=== PATIENT | female | born 1980 | race Caucasian/White ===

== ENCOUNTER 2019-04-02 05:30 | Inpatient (IN) | payer MEDICAID ==
[2019-04-02] VITALS (8 sets, daily range): BP systolic 100–117; BP diastolic 50–70; PULSE 91–98; RESP 18–20; Ht 146.1 cm; Wt 71.8 kg
[~2019-04-02] VITALS: Ht 146.1 cm; Wt 71.8 kg
[2019-04-02] MEDS ORDERED: PREN-19 PO (06:03)
[2019-04-02] MEDS ORDERED: FERR134T PO (06:03)
[2019-04-02] MEDS ORDERED: LACTATED RINGER'S 1,000 ML IV SCH (06:26)
[2019-04-02] MEDS ORDERED: MISOPROSTOL 200 MCG TAB PR PRN ×2 (06:30→12:30)
[2019-04-02] MEDS ORDERED: CEFAZOLIN 2 GM/50 ML (PMX) 50 ML IVPB SCH (06:30)
[2019-04-02] MEDS ORDERED: OXYTOCIN 30 UNITS/LR 500 ML IV SCH ×2 (06:30→12:22)
[2019-04-02] MEDS ORDERED: METHYLERGONOVINE 0.2 MG INJ IM PRN ×2 (06:30→12:30)
[2019-04-02] MEDS ORDERED: CARBOPROST 250 MCG INJ IM PRN ×2 (06:30→12:30)
[2019-04-02] MEDS ORDERED: OXYTOCIN 30 UNITS/LR 500 ML IV PRN ×2 (06:30→12:30)
[2019-04-02] MEDS ORDERED: BETAMET NA PHOS/AC(6 MG/ML) 5ML INJ INJ ONE (07:30)
--- NOTE | 2019-04-02 07:33 | TRIAGE ---
OB Triage Datetime Report Generated by CPN: 04/02/2019 07:33 Datetime: 04/02/2019 07:15 Time of Arrival: 04/02/2019 07:15 EGA: 34.5 Arrived By: Wheelchair Arrived From: Home Chief Complaint: w/ hx c/s x1 c/o ucs and gush fluid at 0400 Movement: Present Contractions: Regular Time Contractions Began: 04/02/2019 03:00 Contractions: q5 Rupture of Membranes: Ruptured Vaginal Bleeding: None Vaginal Discharge: Denies Recent Sexual Intercouse: Denies Abdominal Trauma: Not Applicable Patient Complaints: Contractions Time Provider Notified: 04/02/2019 06:45 Provider Notified: reiche Initial Plan: EFM,SVE Datetime: 04/02/2019 06:22 Labor Evaluation Frequency: 3-6 Monitor Mode: External Duration (sec)2399: 60-120 Quality: Moderate Pattern: Normal: <= 5 Contractions in 10 Minutes Resting Tone Rice: Relaxed Heart Rate FHR Baseline Rate: 140 Monitor Mode: External US FHR Baseline Changes: No Baseline Change Variability: Moderate 6-25 bpm Accelerations: 15X15 Decelerations: None Category: Category I Pain Assessment Pain Scale: 7 Pain Presence: Intermittent Pain Type: Contraction Pain Location: Abdomen Pain Relief Measures: Pain Medication Given Vaginal Exam Dilatation (cms): 1.0 Effacement (%): 60 Station: -2 Exam By: E Juan Pablo Membrane Status: Ruptured Membranes Rupture Method: Spontaneous Amniotic Fluid Color: Clear Amniotic Fluid Amount: Moderate Amniotic Fluid Odor: Normal Vaginal Bleeding: Scant Pool: Positive Nitrazine: Positive Cervix, Consistency: Soft Cervix, Position: Posterior Presentation 'A': Cephalic Datetime: 04/02/2019 05:55 Stage of : OB Triage Maternal Assessment Level of Consciousness: Keenly Alert, Responsive Headache: Denies Blurred Vision: No Nausea/Vomiting: Denies RUQ Epigastric Pain: Denies Facial Edema: None Monitor Mode: External Pattern: Normal: <= 5 Contractions in 10 Minutes Resting Tone Rice: Relaxed Heart Rate FHR Baseline Rate: 135 Monitor Mode: External US Pain Assessment Pain Scale: 6 Pain Presence: Intermittent Pain Type: Contraction Pain Location: Abdomen
[2019-04-02] MEDS ORDERED: BETAMET NA PHOS/AC(6 MG/ML) 2 ML INJ SYG IM SCH (08:00)
[2019-04-02] MEDS ORDERED: METOCLOPRAMIDE 10 MG INJ ONE (08:31)
[2019-04-02] MEDS ORDERED: FAMOTIDINE 20 MG INJ ONE (08:31)
[2019-04-02] MEDS ORDERED: CITRIC ACID/NA CITRATE 30 ML CUP ONE (08:31)
--- NOTE | 2019-04-02 08:41 | PREAC ---
Date/Time of Note Date/Time of Note DATE: 04/02/19 TIME: 08:40 Anesthesia Eval and Record Evaluation Time Pre-Procedure Interview DATE: 04/02/19 TIME: 08:40 Age 38 Sex female NPO: 8 hrs Preoperative diagnosis intrauterine Planned procedure repeat c section Past Medical History Past Medical History: Includes : : (2), Para: (1) Surgery & Anesthesia Issues No known issue Meds Anticoagulation: No Beta Catalina within 24 hr: No Reason Beta Catalina not given: Pt. not on B-Catalina Reported Medications Vit #76/Iron,Carb/FA (Prenatabs Rx Tablet) 1 Each Tablet, 1 EACH PO DAILY, TAB 04/02/19 Ferrous Sulfate (Iron) 134 Mg Tablet, 134 MG PO DAILY, TAB 04/02/19 Current Medications Lactated Ringer's 1,000 ml @ 125 mls/hr Q8H IV Last administered on 04/02/19at 08:12; Admin Dose 125 MLS/HR; Start 04/02/19 at 06:26 Cefazolin Sodium/ Dextrose 50 ml @ 100 mls/hr ONCE IVPB ; Start 04/02/19 at 06:30 Oxytocin/Lactated Ringer's 500 ml @ 125 mls/hr POST IV ; Start 04/02/19 at 06:30 Oxytocin/Lactated Ringer's 500 ml @ 0 mls/hr ONCE PRN IV .VAGINAL BLEEDING; Start 04/02/19 at 06:30 Methylergonovine Maleate (Methergine) 0.2 mg ONCE PRN IM .VAGINAL BLEEDING; Start 04/02/19 at 06:30 Carboprost Tromethamine (Hemabate) 250 mcg ONCE PRN IM .VAGINAL BLEEDING; Start 04/02/19 at 06:30 Misoprostol (Cytotec) 1,000 mcg ONCE PRN MS .VAGINAL BLEEDING; Start 04/02/19 at 06:30 Betamethasone Acet/Betameth SodPhos (Celestone Soluspan) 12 mg ONCE ONCE IM Last administered on 04/02/19at 08:08; Admin Dose 12 MG; Start 04/02/19 at 09:00; Stop 04/02/19 at 09:01 Citric Acid/ Sodium Citrate (Bicitra) 30 ml ONCE ONCE PO Last administered on 04/02/19at 08:36; Admin Dose 30 ML; Start 04/02/19 at 09:00; Stop 04/02/19 at 09:01 Famotidine (Pepcid Iv) 20 mg ONCE ONCE IV Last administered on 04/02/19at 08:36; Admin Dose 20 MG; Start 04/02/19 at 09:00; Stop 04/02/19 at 09:01 Metoclopramide HCl (Reglan) 10 mg ONCE ONCE IV Last administered on 04/02/19at 08:36; Admin Dose 10 MG; Start 04/02/19 at 09:00; Stop 04/02/19 at 09:01 Meds reviewed: Yes Allergies Coded Allergies: No Known Allergy (Unverified , 04/02/19) Allergies Reviewed: Yes Labs/Studies Labs Reviewed: Reviewed by anesthesiologist Result Diagram: 04/02/19 0730 Laboratory Tests 04/02/19 07:30 test: N/A Pre-procedure Exam Last vitals Vital Signs Date Temp Pulse Resp B/P (MAP) Pulse Ox O2 O2 Flow FiO2 Time Delivery Rate 04/02/19 98.0 93 18 113/70 Room Air 06:00 (84) Airway: Adequate mouth opening, Adequate thyromental dist Mallampati: Mallampati II Teeth: Normal Lung: Normal Heart: Normal ASA Physical Status ASA physical status: 2 Emergency: None Planned Anesthetic Neuraxial: Spinal Planned Pain Management Sub-arachniod narcotics, Parenteral pain med Pre-operative Attestations Prior to commencing anesthesia and surgery, the patient was re-evaluated, there was verification of: *The patient's identity *The results of appropriate recent lab work and preoperative vital signs *The above evaluation not changing prior to induction *Anesthetic plan, risk benefits, alternative and complications discussed with patient/family; questions answered; patient/family understands, accepts and wishes to proceed. PRAKASH ACOSTA MD Apr 02, 2019 08:41
[2019-04-02] MEDS ORDERED: morphine SULFATE/PF (10 MG/10 ML) INJ ONE (08:51)
[2019-04-02] MEDS ORDERED: BETAMET NA PHOS/AC(6 MG/ML) 2 ML INJ SYG IM ONE (09:00)
[2019-04-02] MEDS ORDERED: CITRIC ACID/NA CITRATE 30 ML CUP PO ONE (09:00)
[2019-04-02] MEDS ORDERED: METOCLOPRAMIDE 10 MG INJ IV ONE (09:00)
[2019-04-02] MEDS ORDERED: FAMOTIDINE 20 MG INJ IV ONE (09:00)
[2019-04-02] MEDS ORDERED: PHENYLephrine (100 MCG/ML) 10ML SYG ONE (09:00)
[2019-04-02] MEDS ORDERED: AZITHROMYCIN 500MG/NS (PMX) 250 ML ONE (09:13)
[2019-04-02] MEDS ORDERED: ONDANSETRON 4 MG INJ ONE (09:27)
[2019-04-02] MEDS ORDERED: PHENYLephrine 10 MG INJ ONE (09:28)
[2019-04-02] MEDS ORDERED: FENTAnyl 50 MCG/ML VIAL IV PRN ×3 (09:30)
[2019-04-02] MEDS ORDERED: PROCHLORPERAZINE 10 MG INJ IV PRN (09:30)
[2019-04-02] MEDS ORDERED: KETOROLAC 30 MG INJ IV PRN ×2 (09:30→10:30)
[2019-04-02] MEDS ORDERED: DIPHENHYDRAMINE 50 MG INJ IV PRN ×2 (09:30→10:30)
[2019-04-02] MEDS ORDERED: HYDROmorphONE 1 MG/5 ML IV SYRINGE IV PRN ×3 (09:30)
[2019-04-02] MEDS ORDERED: MEPERIDINE 25 MG INJ IV PRN (09:30)
[2019-04-02] MEDS ORDERED: ONDANSETRON 4 MG INJ IV PRN ×2 (09:30→10:30)
--- NOTE | 2019-04-02 09:54 | HP ---
Date/Time of Note Date/Time of Note DATE: 04/02/19 TIME: 09:53 OB - History Hx of Present Free Text/Dictation previous c/section PPROM : 2 Para: 1 Care: Good Care Ultrasounds: Normal mid trimester US Obstetrical Complications: None Medical Complications: None Past Family/Social History * Past Medical, Surgical, Family and Obstetric Histories reviewed from chart. OB Admission Exam Vital Signs Vital Signs Vital Signs Date Temp Pulse Resp B/P (MAP) Pulse Ox O2 O2 Flow FiO2 Time Delivery Rate 04/02/19 98.0 93 18 113/70 Room Air 06:00 (84) Physical Exam Abdomen: WNL Extremities: Normal Cervical Dilatation: Fingertip Effacement: 75% Station: -1 Membranes: Ruptured Heart Rate: 140's Accelerations: Accelerations Present Decelerations: No Decelerations Varibility: Moderate Contractions on Admission: 6-10 Minutes Apart Last 72 hours Lab Results CBC & BMP 04/02/19 07:30 OB Assessment/Plan Reason for admission: observation Other Assessment: PMH Jesse PS Previous c/s Plan: Expectant Management AMTT STRATTON M.D. Apr 02, 2019 09:54
--- NOTE | 2019-04-02 09:58 | OPPN ---
Date/Time of Note Date/Time of Note DATE: 04/02/19 TIME: 09:56 Operative Report Preoperative Diagnosis Previous c/s PPROM Postoperative Diagnosis same Operation/Procedure Performed Repeat c/section Surgeon see signature line psychology assistant Anesthesia: general Estimated blood loss: other (500cc) Transfusion Required none Specimen placenta Grafts/Implants none Complications none MATT STRATTON M.D. Apr 02, 2019 09:58
--- NOTE | 2019-04-02 10:00 | PAC ---
Date/Time of Note Date/Time of Note DATE: 04/02/19 TIME: 10:00 Post-Anesthesia Notes Post-Anesthesia Note Last documented vital signs Vital Signs Date Temp Pulse Resp B/P (MAP) Pulse Ox O2 O2 Flow FiO2 Time Delivery Rate 04/02/19 98.0 93 18 113/70 Room Air 06:00 (84) Activity: WNL Respiratory function: WNL Cardiovascular function: WNL Mental status: Baseline Pain reasonably controlled: Yes Hydration appropriate: Yes Nausea/Vomiting absent: Yes Comments BP: 109/58 HR: 92 RR: 15 T: 97.9 SaO2: 97% PRAKASH ACOSTA MD Apr 02, 2019 10:00
--- NOTE | 2019-04-02 10:22 | OPR ---
DATE OF OPERATION: 04/02/2019 PREOPERATIVE DIAGNOSIS: A 34+ weeks. Previous section, premature rupture of the me mbrane. POSTOPERATIVE DIAGNOSIS: A 34+ weeks. Previous section, premature rupture of the m embrane. OPERATION PERFORMED: Repeat section. ATTENDING SURGEON: Navin Moreno MD NON CATEGORICAL PRESCHOOL TEACHER: Cipriano Quiroga MD TYPE OF ANESTHESIA: Spinal. COMPLICATIONS: None. ESTIMATED BLOOD LOSS: 600 mL. TECHNIQUE: The patient was taken to the operating room where spinal anesthesia was found to be adequ ate. The patient was placed in dorsal lithotomy position. After prep and drape, patient was placed in supine position. After prep and drape, a Pfannenstiel incision was made above the previous scar. Incision was extended to the underlying fascia. Fascia was nicked in the midline. The fascia was e xtended bilaterally. Fascia was from underlying muscles. Muscle was in the midl ine. Peritoneum was entered sharply. Peritoneal incision was extended. Bladder blade was placed in side the abdominal cavity. Bladder flap was made. Lower uterine segment incision was made. Baby wa s delivered vertex, handed to the NICU team. Cord blood sent. Placenta was removed manually. Uteru s was exteriorized. Intrauterine cavity was cleaned using 2 sponges. Lower uterine segment incision was closed in 1 layer using 0 PDS sutures. Gutters were cleaned. Uterus was inserted inside the ab dominal cavity. Peritoneum and muscles were reapproximated using 2-0 chromic sutures. Fascia was cl osed in a running nonlocking fashion using 0 looped PDS sutures. Subcutaneous tissue was closed usin g plain sutures. The skin was closed using suture. Dermabond was placed on top of the incisio n. The patient tolerated the procedure well and was transferred to recovery room in stable condition . There was no complication regarding this surgery. Dictated By: NAVIN LEÓN/NTS Conf#: [id number] DID#: [id number]
[2019-04-02] MEDS ORDERED: HYDROmorphONE 0.5 MG/0.5 ML SYG IV PRN ×2 (10:30)
[2019-04-02] MEDS ORDERED: ZOLPIDEM 5 MG TAB PO PRN (10:30)
[2019-04-02] MEDS ORDERED: NALOXONE (0.4 MG/ML) INJ IV PRN (10:30)
[2019-04-02] MEDS ORDERED: NACL 0.9% 3 ML SYG IV SCH (12:30)
[2019-04-02] MEDS ORDERED: OXYCODONE/ACETAMINOPHEN (5/325) TAB PO PRN (12:30)
[2019-04-02] MEDS ORDERED: LANOLIN HPA 1 PKT TOP PRN (12:30)
[2019-04-02] MEDS: IBUPROFEN 600 MG TAB PO SCH (12:39)
[2019-04-02] MEDS: SENNA/DOCUSATE NA (8.6MG/50MG) TAB PO SCH (21:00)
[2019-04-03 00:39] VITALS: BP 104/64; PULSE 68; PULSE 92; RESP 18
[2019-04-03 04:30] VITALS: BP 108/62; PULSE 98; RESP 19
[2019-04-03 08:00] VITALS: BP 89/45; PULSE 88; RESP 18
[2019-04-03] MEDS: SENNA/DOCUSATE NA (8.6MG/50MG) TAB PO SCH ×2 (10:57→21:08)
[2019-04-03] MEDS: IBUPROFEN 600 MG TAB PO SCH ×2 (13:43→23:58)
--- NOTE | 2019-04-03 16:14 | PN ---
Date/Time of Note Date/Time of Note DATE: 04/03/19 TIME: 16:11 OB Subjective Subjective Subjective POD#1 Patient is doing well. She denies nausea, vomiting, shortness of breath, chest pain, headache. She has been ambulating without difficulty, tolerating regular diet. Pain is well controlled on current medications OB Objective Objective Objective VS - Last 72 Hours, by Label Date Temp Pulse Resp B/P (MAP) Pulse Ox O2 O2 Flow FiO2 Time Delivery Rate 04/03/19 98.4 88 18 89/45 (60) 98 Room Air 08:00 04/03/19 98.3 98 19 108/62 Room Air 04:30 (77) 04/03/19 92 18 104/64 00:39 (77) 04/02/19 97.8 95 19 106/61 Room Air 20:30 (76) 04/02/19 98.0 93 18 102/58 97 Room Air 16:00 (73) 04/02/19 20 100/50 97 Room Air 15:00 (67) 04/02/19 91 19 117/58 100 Room Air 14:00 (77) 04/02/19 98 20 110/62 Room Air 13:30 (78) 04/02/19 98.2 95 20 106/62 Room Air 13:00 (77) 04/02/19 98.1 91 20 102/60 97 Room Air 12:29 (74) 04/02/19 98.0 93 18 113/70 Room Air 06:00 (84) General: AAO X 3, comfortable, NAD, appropriate mood and affect. ABD: +BS. Soft, non-tender. Uterus 2 cm below umbilicus Incision: Dry dressing Flank: No CVA tenderness (B/L) LE: Mild edema. No clubbing, cyanosis, thigh or calf tenderness (B/L). Homans 'sign is negative Laboratory Tests Test 04/02/19 07:15 04/02/19 07:30 04/03/19 07:11 04/03/19 08:24 Urine Opiates NEG Screen Urine NEG Barbiturates Urine NEG Amphetamines Screen Urine NEG Benzodiazepines Screen Urine Cocaine NEG Screen Urine NEG Cannabinoids White Blood 14.0 10^3/ul 15.5 10^3/ul Count Red Blood Count 3.93 10^6/ul 3.45 10^6/ul Hemoglobin 11.8 g/dl 10.4 g/dl Hematocrit 35.1 % 30.4 % Mean Corpuscular 89.3 fl 88.1 fl Volume Mean Corpuscular 30.0 pg 30.1 pg Hemoglobin Mean Corpuscular 33.6 g/dl 34.2 g/dl Hemoglobin Niki nt Red Cell 13.2 % 13.2 % Distribution Width Platelet Count 219 10^3/UL 201 10^3/UL Mean Platelet 10.7 fl 10.0 fl Volume Immature 0.300 % 0.500 % Granulocytes % Neutrophils % 81.9 % 80.3 % Lymphocytes % 11.6 % 13.5 % Monocytes % 5.6 % 5.5 % Eosinophils % 0.3 % 0.1 % Basophils % 0.3 % 0.1 % Nucleated Red 0.0 /100WBC 0.0 /100WBC Blood Cells % Immature 0.040 10^3/ul 0.070 10^3/ul Granulocytes # Neutrophils # 11.5 10^3/ul 12.5 10^3/ul Lymphocytes # 1.6 10^3/ul 2.1 10^3/ul Monocytes # 0.8 10^3/ul 0.9 10^3/ul Eosinophils # 0.0 10^3/ul 0.0 10^3/ul Basophils # 0.0 10^3/ul 0.0 10^3/ul Nucleated Red 0.0 10^3/ul 0.0 10^3/ul Blood Cells # Prothrombin Time 11.9 Sec Prothrombin Time 0.9 Ratio INR 0.87 International Normalized Ratio Activated 30.1 Sec Partial Thrombop last Time Rapid Plasma NONREACTIVE Reagin Hepatitis B NEGATIVE Surface Antigen Lab Scanned REFERENCE Report LAB [id number] OB Assessment/Plan Other plan: 38 years old -1-0-2 s/p repeat delivery at 34+ weeks with PPROM. POD#1 - AF, VSS - Baby is in NICU - Contraception methods with R/B/A/FR discussed - Continue care - F/U by laborist WADE PIÑA Apr 03, 2019 16:14
[2019-04-03 16:49] VITALS: BP 103/55; PULSE 85; RESP 18
[2019-04-03 20:00] VITALS: BP 106/69; PULSE 84; RESP 18
[2019-04-04] MEDS: IBUPROFEN 600 MG TAB PO SCH ×4 (05:16→23:44)
[2019-04-04 05:20] VITALS: BP 108/71; PULSE 74; RESP 17
[2019-04-04 08:52] VITALS: BP 113/70; PULSE 72; RESP 17
[2019-04-04] MEDS: SENNA/DOCUSATE NA (8.6MG/50MG) TAB PO SCH ×2 (10:01→21:26)
[2019-04-04 15:22] VITALS: BP 124/77; PULSE 85; RESP 18
--- NOTE | 2019-04-04 15:31 | PN ---
Date/Time of Note Date/Time of Note DATE: 04/04/19 TIME: 15:29 OB Subjective Subjective Subjective Pumping her breast. Eating. Ambulating. Reports decreased vaginal bleeding. Denies any dizziness, lightheadedness, shortness of breath or chest pain. Passed flatus. Tolerated regular diet. Pain well-controlled with p.o. pain medication. OB Objective Objective Objective General appearance: Alert and oriented x4 does not appear to be in any acute distress Abdomen: Soft, fundus palpable below the umbilicus and nontender Incision: Clean dry and intact Extremities: No calf tenderness, no click no edema no cord palpable Lungs: Clear to auscultation bilaterally CV: RRR CBC & BMP 04/02/19 07:30 04/03/19 08:24 OB Assessment/Plan Other Assessment: Postoperative day #2 Status post section for labor and premature rupture membrane Doing well Mild anemia, asymptomatic Continue routine postop care MAKI ALBERTS MD Apr 04, 2019 15:31
[2019-04-04 20:30] VITALS: BP 103/63; PULSE 75; RESP 19
[2019-04-05 04:00] VITALS: BP 107/58; PULSE 63; RESP 19
[2019-04-05] MEDS: IBUPROFEN 600 MG TAB PO SCH ×2 (05:26→11:54)
[2019-04-05 08:00] VITALS: BP 112/67; PULSE 80; RESP 20
[2019-04-05 08:30] VITALS: BP 112/67; PULSE 80; RESP 18
[2019-04-05] MEDS: SENNA/DOCUSATE NA (8.6MG/50MG) TAB PO SCH (08:46)
[2019-04-05] MEDS ORDERED: DIPHTH/TET/ACEL PERTUSS (ADULT) 0.5 ML VIAL IM* ONE (09:00)
--- NOTE | 2019-04-05 12:59 | PD.PPDC ---
MAINTENANCE SUPERVISOR 2ND SHIFT Discharge Instruction Diagnosis [id number] Final Diagnosis: Ilnrb8j s/p RC/S for PPROM Condition Mphxt5Lc Patient Condition: Letiw9s Good Diet [id number] Diet: Cfdzb8t Resume Regular Diet Activity/Restrictions [id number] Activity: Tfuer5v May Shower [id number] Restrictions: Fcnsg8v No Exercising No Lifting Minimize Stair-climbing No Sexual Activity Nothing in the Vagina No Silex No Tampons, douche Wound/Drain Care Instructions [id number] Wound/Drain Care Instructions: Hybnt0f Wash with soap and water Keep clean and dry Follow-up Follow-up with Physician: 2, Week/Weeks Return to clinic for [id number] NURSE PRACTITIONER PHYSICIANS ASSISTANT Instructions: Tmvif9e Fever greater than 101 Chills Worsening abdominal pain Excessive Vaginal Bleeding More than 2 pads per hour Unable to tolerate diet Mpsbv3Mf OB Instructions: Cozsu6w Breast Tenderness Depression Blurried Vision Headache Jnxte6Vp Surgical Instructions: Jqlvn7r Incisional Drainage Incisional Redness KARUNA VILLANUEVA MD Apr 05, 2019 12:59
--- NOTE | 2019-04-05 13:03 | DS ---
Date/Time of Note Date/Time of Note DATE: 04/05/19 TIME: 13:01 Obstetrical Discharge Record Final Diagnosis Final Diagnosis: delivered Other Final Diagnosis IUP 34w5d with previous c/s PPROM Section Section: Repeat Complications Augmentation: No Induction: No Rupture of Membranes: Yes Condition on Discharge Physical Assessment Last Vitals: VSS afebrile Voiding: Yes Bowel Movement: Yes Breast: Soft, non-tender Fundus: Firm Abdomen and Incision: soft wound dry Episiotomy: n/a Calf Tenderness: No Patient Condition: Stable (c/0 coughing last night) KARUNA VILLANUEVA MD Apr 05, 2019 13:03
--- NOTE | 2019-04-06 16:16 | DELSUM ---
Delivery Summary A-C Datetime Report Generated by CPN: 04/06/2019 16:16 DELIVERY PERSONNEL Commercial Green Building Designer: Villondo, Aparna MATERNAL INFORMATION Delivery Anesthesia: Spinal Medications in Delivery: see anesthesiologist notes Delivery QBL (ml): 600 Placenta Cultured: No Maternal Complications: PROM LABOR SUMMARY EDC: 05/09/2019 00:00 No. Babies in Womb: 1 Attempted: No Labor Anesthesia: None LABOR INFORMATION Reason for Induction: PROM Oxytocin: N/A Group B Beta Strep: Not Done Antibiotics # of Doses: 2 Antibiotics Time of Last Dose: 04/02/2019 09:14 Steroids Given: None Reason Steroids Not Administered: Not Applicable MEMBRANES Membranes Rupture Method: Spontaneous Rupture of Membranes: 04/02/2019 04:00 Length of Rupture (hr): 5.32 Amniotic Fluid Color: Clear Amniotic Fluid Amount: Moderate Amniotic Fluid Odor: Normal STAGES OF LABOR Stage 3 hr: 0 Stage 3 min: 2 CSECTION DELIVERY Primary Indication: Repeat Elective Secondary Indication: N/A CSection Urgency: Elective CSection Incidence: Repeat Labor: No Labor Elective: Elective CSection Incision: Lower Uterine Transverse BABY A INFORMATION Infant Delivery Date/Time: 04/02/2019 09:19 Method of Delivery: Born in Route : No : N/A Forceps: N/A Vacuum Extraction: N/A Shoulder Dystocia : N/A SHOULDER DYSTOCIA BABY A Infant Delivery Date/Time: 04/02/2019 09:19 PRESENTATION/POSITION BABY A Presentation: Cephalic Cephalic Presentation: Vertex Vertex Position: Left Occipital Anterior Breech Presentation: N/A PLACENTA INFORMATION BABY A Placenta Delivery Time : 04/02/2019 09:21 Placenta Method of Delivery: Manual Removal Placenta Status: Delivered SCORES BABY A Heart Rate 1 min: >100 bpm Resp Effort 1 min: Good Cry Reflex Irritability 1 min: Cough/Sneeze/Pulls Away Muscle Tone 1 min: Active Motion Color 1 min: Blue/Pale Resuscitation Effort 1 min: Tactile Stimulation SCORE 1 MIN: 8 Heart Rate 5 min: >100 bpm Resp Effort 5 min: Good Cry Reflex Irritability 5 min: Cough/Sneeze/Pulls Away Muscle Tone 5 min: Active Motion Color 5 min: Body Robinson, Extremit Blue Resuscitation Effort 5 min: Tactile Stimulation SCORE 5 MIN: 9 INFORMATION BABY A Gestational Age at Delivery: 34.5 Gestational Status: Late - 34- 36.6 Weeks Infant Outcome : Liveborn Condition : Stable Infant Sex: Female IDENTIFICATION/MEDS BABY A ID Band Number: [id number] ID Band Location: Right Leg; Left Leg Sensor Applied: No Vitamin K Given : Not Given Erythromycin Given: Not Given WEIGHT/LENGTH BABY A Infant Birthweight (gm): 2265 Infant Weight (lb): 5 Weight (oz): 0 Length (in): 17.50 Infant Length (cm): 44.45 CORD INFORMATION BABY A No. Cord Vessels: 3 Nuchal Cord : Around Neck x1, Tight Cord Blood Taken: No Infant Suction: Mouth; Nose ASSESSMENT BABY A Complications: None Physical Findings at Delivery: Within Normal Limits Respirations: Appears Normal Coke Still Cleaner/ALS Called : No Infant Care By: Sylvia Hale Transferred To: NICU
== END 2019-04-05 15:50 | disposition home or self-care (01) | DRG 788 ==
LOC: L-D 05:30 → OBT 05:30 → L-D 06:45 → OBT 06:45 → L-D 08:41 → PP1 12:20
PROVIDERS: ADMIT Obstetrics & Gynecology; ATTEND Obstetrics & Gynecology
PROC: 10D00Z1 Extraction of Products of Conception, Low, Open Approach (ICD-10-PCS; principal; 2019-04-02 08:00)
DX: O42.913 Preterm premature rupture of membranes, unspecified as to length of time between rupture and onset of labor, third trimester (principal); O34.211 Maternal care for low transverse scar from previous cesarean delivery; O90.81 Anemia of the puerperium; D64.9 Anemia, unspecified; Z37.0 Single live birth; Z3A.34 34 weeks gestation of pregnancy
CPT/HCPCS: 76815; 76818; 80307; 85025; 85610; 85730; 86592; 86850; 86900; 86901; 87340; 99464; G0463; J0456; J0690; J0702; J2274; J2370; J2405; J2590; J2765; J7120